=== PATIENT | female | born 1985 | race Caucasian/White ===

== ENCOUNTER 2025-04-16 08:45 | Outpatient (CLI) | payer BC, SELFPAY ==
--- NOTE | ~2025-04-16 | MMUS_ITS ---
EXAMINATION: US breast BI complete, MM diagnostic ching BI w phillip HISTORY: Palpable breast masses during clinical examination. TECHNIQUE: Additional 3-D tomosynthesis images of the breasts were performed and synthetic 2-D images were generated. CAD analysis was submitted and interpreted. High resolution bilateral complete breas t ultrasound was performed. COMPARISON: None BREAST PARENCHYMAL COMPOSITION: Dense: The breasts are extremely dense, which lowers the sensitivity of mammography. FINDINGS: MAMMOGRAPHIC FINDINGS: There are no suspicious masses, calcifications or architectural distortion in either breast to sugges t malignancy. ULTRASOUND: Complete US of all 4 quadrants of the breast/s and retroareolar region was reviewed. Right breast: Normal heterogeneous echotexture without focal solid or cystic mass. Left breast: At 12:00, 4 cm from the nipple there is an oval circumscribed parallel oriented hypoecho ic mass measuring 5 x 5 x 3 mm with marginal vascularity, no posterior features and smooth margins. IMPRESSION: 1. Probable benign 5 mm left breast mass at 12:00, 4 cm from the nipple. No evidence for malignancy i n the right breast. 2. Recommend 6 month follow-up Limited left breast ultrasound. BI-RADS category 3, probably benign findings. Reviewed, dictated and finalized at location A. IMPRESSION: 1. Probable benign 5 mm left breast mass at 12:00, 4 cm from the nipple. No saida dence for malignancy in the right breast. 2. Recommend 6 month follow-up Limited left breast ultrasound. BI-RADS category 3, probably benign findings.
== END 2025-04-16 08:46 | disposition home or self-care (01) ==
PROVIDERS: PCP Physician Assistant; Visit Provider Physician Assistant
DX: N63.10 Unspecified lump in the right breast, unspecified quadrant (principal); N63.20 Unspecified lump in the left breast, unspecified quadrant
CPT/HCPCS: 76641; 77062; 77066; G0279

== ENCOUNTER 2025-07-09 02:42 | Day surgery (SDC) | payer BC, SELFPAY ==
--- NOTE | 2025-06-28 16:55 | PC.NURSE ---
Report to the Outpatient Waiting Room, entrance under the green pavilion located off [facility], at time 1000 on date 07/09/25. Planned Procedure Time: 1200.? Time changes happen often and if your time is changed the preop area will call you the afternoon before. - You and your visitor will be asked to self-screen and do not enter if you have any COVID symptoms. Please call surgeon if you need to reschedule. - A mask is optional within the hospital at this time. Patients may have clear liquids (water, carbonated beverages, clear teas, apple juice) until 3 hours prior to surgery with a maximum of 20 ounces. 0900 - No food from midnight until time of surgery and no smoking, or chewing tobacco (or any form of nicotine). No chewing gum, candy or mints. - Infants may have breast milk until 4 hours before surgery, infant formula 6 hours prior to surgery. - Children will be allowed to drink immediately following surgery.? If applicable, please bring a bottle or sippy cup to assist with drinking. Juice, water, soda, and popsicles are readily available.? For infants on formula, please bring formula the day of surgery.? Pacifiers are allowed. Take only the following medications with a SIP of water on the morning of surgery: N/A DO NOT STOP ANY OF YOUR OTHER PRESCRIPTION MEDICATIONS PRIOR TO SURGERY EXCEPT THE FOLLOWING Hold all vitamins and supplements for 3 days per anesthesiologist. Medications to discontinue per physician N/A Date to take last dose N/A Please no make-up, nail divehi, hairspray, perfume, deodorant, or body powder the day of surgery.? No jewelry (including any body piercings) or valuables the day of surgery, leave them at home.? Please take a shower or bath the night before, or the morning of, surgery with an antibacterial soap.? Wear comfortable, loose fitting clothing.? Children are encouraged to wear pajamas. - Jewelry must be removed prior to entering the operating room.? Rings and piercings that are not removed may be cut off. - The hospital will not accept responsibility for valuables.? - Please leave all valuables, including medications, at home the day of surgery. If you are going home after surgery, a licensed pharmacy delivery driver must drive you home.? - NO public transportation without another adult if you receive anesthesia. - We recommend that an adult stay with you for 24 hours following discharge. - We also recommend that you do not drive, make important decision, drink alcoholic beverages, or take any drugs that were not prescribed by your health care provider for at least 24 hours after your discharge time. For Pediatric surgeries, we recommend two adults accompany the child home. Follow any additional instructions given to you from your surgeon. Telephone instructions given to Patient- Emely Chacon and asked if any additional questions and then verbalized understanding. Patient advised to call surgeon office or pre surgery nurse liaison [phone] if any additional questions.
[2025-06-28 17:01] VITALS: BMI 24.5
--- OUTSIDE RECORDS SUMMARY | 2025-07-09 02:43 | XMS_ITS | Clinical Summary ---
Author Organization [facility] at the Medical Office Building Address [address] [place] [id number] Care Team Providers Care Pole Shaver Name Role Phone Shelly Olivas Primary Care Provider [phone] Guido Hernandez MD Unavailable [phone] Allergies Active Allergy Reactions Criticality Noted Date Comments Amoxicillin Penicillins Hives Medium 11/02/2017 Medications albuterol HFA (ProAir HFA) 90 mcg/actuation inhalerIndicati ons:COVID-19 Inhale 2 puffs every 4 (four) hours as needed for wheezing or shortness of breath 8.5 g 2 Active triamcinolone (KENALOG) 0.1 % ointmentIndicat ions:Dermatitis due to plant Apply topically 2 (two) times a day as needed for irritation or rash Do use more than 10-14 days 60 g 5 Active methylPREDNISol one (MEDROL DOSEPACK) 4 mg DosepackIndicat ions:Dermatitis due to plant Take as directed on package. 21 tablet 5 06/11/20 25 Active Problems Problem Noted Date Diagnosed Date Hair loss 02/05/2025 Assessment & Plan (02/05/2025 8:21 AM CDT): Orders: Ferritin; Future Iron profile w/ IBC; Future Total testosterone; Future Comprehensive metabolic panel; Future CBC without differential; Future Well woman exam with routine gynecological exam 09/17/2021 Assessment & Plan (04/10/2025 10:58 AM CDT): Exercise 5 days a week, 30 mins per day recommended. Eat a heart healthy diet consisting of good, healthy protein (eggs, nuts, peanut butter, chicken, fish, turkey, less pork/beef), lots of vegetables, less carbohydrates and less sugar. Annual physical recommended. Assessment & Plan (09/17/2021 4:04 PM WASTEWATER PROJECT ENGINEER): Exercise 5 days a week, 30 mins per day recommended. Eat a heart healthy diet consisting of good, healthy protein (eggs, nuts, peanut butter, chicken, fish, turkey, less pork/beef), lots of vegetables, less carbohydrates and less sugar. Annual physical recommended. Vaccinations up-to-date, she is going to get her COVID booster She declines a flu vaccine Pap-today 09/17/2021 H pylori ulcer 03/19/2021 Chronic gastritis 03/19/2021 Steatosis of liver 11/12/2020 Iron deficiency anemia 04/26/2020 Assessment & Plan (02/05/2025 8:21 AM CDT): Orders: Ferritin; Future Iron profile w/ IBC; Future US Transvaginal; Future CBC without differential; Future Menorrhagia with regular cycle 01/04/2019 Assessment & Plan (02/05/2025 8:21 AM CDT): Orders: Thyroid Function [place]; Future US Transvaginal; Future Ambulatory referral to Obstetrics / Gynecology; Future Irritable bowel syndrome with constipation 02/02 Assessment & Plan (02/05/2025 8:22 AM CDT): Hypoglycemia 04/07/2017 Resolved Problems Problem Noted Date Diagnosed Date Resolved Date Psychophysiological insomnia 09/17/2021 02/05/2025 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 09/17/2021 02/05/2025 Iron deficiency anemia secon lisy to inadequate dietary iron intake 01/04/2019 0 Microcytic anemia 09/07/2018 11/12/2020 Assessment & Plan (04/16/2020 9:59 AM CDT): Will recheck labs Encounters Date Type Department Care Team Description 06/05/2025 1:00 PM CDT Telemedicine [address] [phone] Melody Chavarria NP Dermatitis due to plant (Primary Dx) 06/05/2025 Patient Self-Triage [facility]/ Physicians [address] [place] [address] Mychart, Generic Provider 04/17/2025 Orders Only [address] [phone] Shelly Olivas PA Mass of left breast, unspecified quadrant (Primary Dx) 04/16/[address] [address] Shelly Olivas PA 04/16/2025 Orders Only [address] [phone] Shelly Olivas PA Masses of both breasts 04/16/2025 Results Follow-Up [address] [phone] Sehlly Olivas PA THINPREP TIS PAP AND HR HPV DNA, C. TRACHOMATIS AND N. GONORRHOEAE 04/10/2025 9:30 AM CDT Office Visit [address] [phone] Shelly Olivas PA Well woman exam with routine gynecological exam (Primary Dx); Encounter for screening for human papillomavirus (HPV); Screen for STD (sexually transmitted disease); Vaginal itching; Vaginal discharge; Vaginal odor; Pap smear for cervical cancer screening; Masses of both breasts from Last 3 Months Immunizations Immunization Administration Dates Next Due Influenza, Unspecified 08/01/2024(Deferr ed: Patient decision),08/01/2023(Deferred: Patient decision),08/01/2022(Deferred: Patient Refused),03/11/2022(Deferred: Patient Refused),08/01/2021(Deferred: Patient Refused),08/01/2021(Deferred: Patient Refused),08/01/2020(Deferred: Patient Refused) Tdap 06/03/2019 Surgical History Surgery Date Site/Laterality Comments TUBAL LIGATION March 2014 Medical History Medical History Date Comments Hypoglycemia 04/07/2017 Irritable bowel syndrome with constipation 02/02 Iron deficiency anemia secon lisy to inadequate dietary iron intake 01/04/2019 Menorrhagia with regular cycle 01/04/2019 Microcytic anemia 09/07/2018 Liver disease Anxiety November 2020 Peptic ulceration January 2021 Menstrual problem June 2020 Psychophysiological insomnia 09/17/2021 Family History Medical History Relation Name Comments Diabetes Father Rg Chacon Heart attack Father Rg Chacon Heart attack Maternal Grandfather Josh Pelaez Heart attack Maternal Grandmother Philly Benigno Heart disease Maternal Grandmother Philly Johnsonlanahan Obesity Mother Frida Cramer Thyroid problem Mother Frida Cramer Coronary artery disease Paternal Grandfather Kurt Clau s Heart disease Paternal Grandfather Kurt Chacon Kidney failure Paternal Grandfather Kurt Chacon Aneurysm Paternal Grandmother Breast cancer Paternal Grandmother Relation Name Status Comments Father Rg Chacon Alive Maternal Grandfather Josh Pelaez Maternal Grandmother Philly Pelaez Mother Frida Cramer Alive Paternal Grandfather Kurt Chacon Paternal Grandmother Social History Tobacco Use Types Packs/Day Years Used Date Smoking Tobacco: Former Cigarettes 0.1 26.2 S tarted: 04/16/1999 Smokeless Tobacco: Never Tobacco Cessation:Counseling Given: Not Answered Alcohol Use Standard Drinks/Week Comments Yes 4 (1 standard drink = 0.6 oz pur e alcohol) AUDIT-C Answer Date Recorded Q1: How often do you have a drink containing alc ohol? Monthly or less 06/05/2025 Q2: How many drinks containi ng alcohol do you have on a typical day when you are drinking? 1 or 2 06/05/2025 Q3: How often do you have si x or more drinks on one occasion? Never 06/05/2025 PHQ-2 Answer Date Recorded PHQ-2 Total Score (If total score is 3 or more points, staff should administer the PHQ-9) 0 06/05/2025 PHQ-9 Answer Date Recorded PHQ-9 Total Score 1 04/10/2025 Comments No Sex and Gender Information Value Date Recorded Sex Assigned at Not on file Legal Sex Female 5:38 PM WASTEWATER PROJECT ENGINEER Gender Identity Female 04/23/2020 12:25 PM CDT Sexual Orientation Straight 04/23/2020 12 :25 PM CDT Obstetrics History Last Filed Vital Signs Vital Sign Reading Time Taken Comments Blood Pressure 102/68 04/10/2025 9:27 AM CDT Pulse 87 04/10/2025 9:27 AM CDT Temperature 36.8 C (98.2 F) 04/10/2025 9:27 AM CDT Respiratory Rate 16 04/10/2025 9:27 AM CDT Oxygen Saturation 98% 04/10/2025 9:27 AM CDT Inhaled Oxygen Concentration - - Weight 62.1 kg (137 lb) 06/05/2025 12:54 PM CDT Height 160 cm (5' 3) 06/05/2025 12:54 PM CDT Body Mass Index 24.27 06/05/2025 12:54 PM CDT Plan of Treatment Health Maintenance Due Date Last Done Comments Hepatitis C Screening 1987 Hepatitis B Screening 2005 Pneumococcal vaccine <65 (1 of 2 - PCV) 2006 HPV Vaccines (1 - 3-dose SCD M series) 2014 Covid-19 Vaccine (2024-2 6 season) 2025 12/10/2021, 03/30/2021, 03/02/2021 Influenza Vaccine (#1) 2025 Regular Well Visit/Exam 18-64 04/10/2026 04/10/2025, 09/17/2021 Depression Screening 06/05/2026 06/05/2025, 04/10/2025, 04/10/2025, Additional history exists Cervical Cancer Screening 09/17/2026 09/17/2021 DTaP/Tdap/Td Vaccine (2 - Td or Tdap) 06/03/2029 06/03/2019 Varicella Vaccines Discontinued Procedures Procedure Name Priority Date/Time Associated Diagnosis Comments THINPREP TIS PAP AND HR HPV DNA, C. TRACHOMATIS AND N. GONORRHOEAE Routine 04/10/2025 10:47 AM CDT Pap smear for cervical cancer screening Encounter for screening for human papillomavirus (HPV) Screen for STD (sexually transmitted disease) PAP AND HIGH RISK HPV, REFLEX TO GENOTYPING Routine 09/17/2021 3:55 PM WASTEWATER PROJECT ENGINEER Menorrhagia with irregular cycle Well woman exam with routine gynecological exam from Last 3 Months or Most Recently Relevant to Health Maintenance Results * (ABNORMAL) THINPREP TIS PAP AND HR HPV DNA, C. TRACHOMATIS AND N. GONORRHOEAE (04/10/2025 10:47 AM CDT) CLINICAL INFORMATION: [facility] Comment:None given LMP [facility] [email or web address] [facility] Comment:NONE GIVEN Previous Pap [facility] [email or web address] [facility] Comment:NONE GIVEN Prev. Bx [facility] [email or web address] [facility] Comment:NONE GIVEN SOURCE: [facility] [email or web address] [facility] Comment:None given Pap, specimen adequacy [facility] Comment: Satisfactory for evaluation. Endocervical/transformation zone component present. Age and/or menstrual status not provided Pap, general categorization (A) [facility] [email or web address] [facility] Comment:Cytology Results: Ep ithelial Cell Abnormality HPV interp (A) [facility] Comment: Atypical Squamous Cells of Undetermined Significance (ASC-US) COMMENTS [facility] Comment: This Pap test has been evaluated with computer assisted technology. [employer] [facility] Comment: FAN GARNER(ASCP) CT Screening location: [address] [address] Pathologist [facility] Comment: Alexey Noyola M.D., Board Certified in Anatomic Pathology and Clinical Pathology. (electronic signature) Pathologist Release Date/Time: 04/13/2025 09:27AM Comment [facility] Comment: EXPLANATORY NOTE: The Pap is a screening test for cervical cancer. It is not a diagnostic test and is subject to false negative and false positive results. It is most reliable when a satisfactory sample, regularly obtained, is submitted with relevant clinical findings and history, and when the Pap result is evaluated along with historic and current clinical information. Human papillomavirus DNA, High Risk E6/E7 Detected(A) NOT DETECTED [facility] Comment: Detected One or more High Risk HPV types (16,18,31,33, 35,39,45,51,52,56,58,59,66,68) was detected. Methodology: Real Time PCR C. trachomatis RNA NOT DETECTED NOT DETECTED [facility] N. gonorrhoeae RNA NOT DETECTED NOT DETECTED [facility] Comment [facility] Comment: The analytical performance characteristics of this assay, when used to test SurePath(TM) specimens have been determined by [employer]. The modifications have not been cleared or approved by the FDA. This assay has been validated pursuant to the CLIA regulations and is used for clinical purposes. For additional information, please refer to https://education.BDA/faq/UKO839 (This link is being provided for information/ educational purposes only.) Vaginal Swab 04/10/2025 10:4 7 AM CDT 04/11/2025 8:00 PM CDT us Shelly [facility] CYTOLOGY ORDERABLES Final Re sult [facility] [address] [place] [address] * Pap and High Risk HPV, reflex to Genotyping (09/17/2021 3:55 PM WASTEWATER PROJECT ENGINEER) CLINICAL INFORMATION: [facility] Comment: Information not provided SCREENING LMP [facility] Comment:09/17 Previous Pap [facility] Comment:INFORMATION NOT PROV IDED Prev. Bx [facility] Comment:INFORMATION NOT PROV IDED SOURCE: [facility] Comment:Cervix, Endocervix Pap, specimen adequacy [facility] Comment: Satisfactory for evaluation. Endocervical/transformation zone component present. HPV interp [facility] Comment:Negative for intraep ithelial lesion or malignancy. Grip Wrapper [facility] Comment: DDS, CT(ASCP) CT screening location: [place] [address] [place] [address] Comment [facility] [email or web address] [facility] Comment: EXPLANATORY NOTE: The Pap is a screening test for cervical cancer. It is not a diagnostic test and is subject to false negative and false positive results. It is most reliable when a satisfactory sample, regularly obtained, is submitted with relevant clinical findings and history, and when the Pap result is evaluated along with historic and current clinical information. Human papillomavirus DNA, High Risk E6/E7 Not Detected NOT DETECTED [employer] /Sara Storey [facility] Comment: Not Detected High Risk HPV types (16,18,31,33,35,39,45,51,52, 56,58,59,66,68) were not detected. Other HPV types which cause anogenital lesions may be present. The significance of the other types of HPV in malignant processes has not been established. Methodology: Real Time PCR Swab 09/17/2021 3:55 PM WASTEWATER PROJECT ENGINEER 09/18/2021 1:49 PM WASTEWATER PROJECT ENGINEER Shelly LUNA [facility] CYTOLOGY ORDERABLES Final Re sult [email or web address] [address] [place] [address] [employer] [address] [place] [address] from Last 3 Months or Most Recently Relevant to Health Maintenance Insurance [employer] PPO POS [employer] PPO POS [facility] [place] Care Teams Pole Shaver Relationship Specialty Start Date End Date Shelly Olivas PA [address] [place] [address] PCP - General 01/04/19 Guido Hernandez MD [address] [place] [address] Medical Oncologist/Payroll Accountant Hematology and Oncology 05/08/20
--- NOTE | 2025-07-09 07:43 | PM.IMHP ---
H&P: HPI History of Present Illness Date/Time: 07/09/25 07:43 Chief Complaint: menorrhagia Narrative: Patient is a 40 year old female who presents for hysteroscopy and endometrial ablation. She reports a long history of menorrhagia which started after her tubal ligation. She previously required iron infusions for symptomatic anemia. She has tried medical management in the past without improvement. Endometrial biopsy showed no hyperplasia or malignancy. Risks and benefits of endometrial ablation including risk of pain and continued heavy bleeding were discussed and patient voices understanding. Review of Systems Review of Systems: All systems reviewed & are unremarkable except as noted in HPI and below [facility] Social History Social History Years smoked: 22 Smoking status: Current every day smoker Tobacco type: cigarettes Alcohol intake: current Alcohol use details: once a month Spiritual care concerns: No Meds Home Medications and Allergies Home Medications ?Medication ?Instructions ?Recorded ?Confirmed ?Type No Home Medications 06/28/25 06/28/25 History Allergies Allergy/AdvReac Type Severity Reaction Status Date / Time amoxicillin Allergy Severe Hives Verified 06/28/25 16:44 Penicillins Allergy Severe Hives Verified 06/28/25 16:44 Exam Const: General: comfortable and no acute distress Eyes: General: appearance normal, both eyes and all related structures Resp: Effort & Inspection: normal respiratory effort Cardio: Rate: regular rate Extrem: General: normal to inspection Psych: Mental Status: mental status grossly normal Assessment and Plan Assessment and plan (1) Menorrhagia: Code(s): N92.0 - Excessive and frequent menstruation with regular cycle Status: Acute Assessment and Plan: - reports menorrhagia started after tubal ligation - EMB wnl, no hyperplasia or malignancy - risks and benefits of endometrial ablation discussed with patient who voices understanding - will proceed with hysteroscopy and endometrial ablation
[2025-07-09 08:40] VITALS: BP 112/54; PULSE 88; RESP 16; TEMP 36.7; O2SAT 100
--- NOTE | 2025-07-09 08:51 | WPDHPUPDATE1 ---
History and Physical Update Update Date/Time: 07/09/25 08:51 History and Physical has been reviewed, including an updated exam of the patient. There are NO changes in the patient's condition. Risks, benefits, and alternatives have been discussed and questions answered. Patient agrees to proceed with procedure.
[2025-07-09] MEDS: ACETAMINOPHEN 500 MG TABLET 1000 MG PO (08:59)
--- NOTE | 2025-07-09 09:00 | P.PNAN_ITS ---
Anes - Initial Pre Proc Eval Procedure: Operation Date: 07/09/25 10:30 Proposed Procedures p Hysteroscopy with Kiana Endometrial Ablation - Kameron Gonzales MD Date/Time: 07/09/25 09:00 Surgeon: Kameron Gonzales MD Pre Op Diagnosis: menorrhagia with regular cycle Patient Data Age: 40 Gender: F Height: 1.6 m Weight: 62.7 kg Allergies Allergy/AdvReac Type Severity Reaction Status Date / Time amoxicillin Allergy Severe Hives Verified 06/28/25 16:44 Penicillins Allergy Severe Hives Verified 06/28/25 16:44 Home Medications ?Medication ?Instructions ?Recorded ?Confirmed ?Type No Home Medications 06/28/25 06/28/25 H istory Patient hx anesthesia problems: none Family hx anesthesia problems: none Results Review: All pre-operative results and documents have been reviewed as part of the pre- operative evaluation. [facility] Social History Social History Years smoked: 22 Smoking status: Current every day smoker Tobacco type: cigarettes Alcohol intake: current Alcohol use details: once a month Spiritual care concerns: No Anes - Eval Final PreProcedure Day of Procedure 07/09/25 09:00 Patient weight: normal Heart: regular rate and rhythm Lungs: clear to auscultation and normal air movement Airway: Mallampati scale class II Neurological: alert and oriented Last oral intake: >/= 8 hours ASA classification: II Emergent: no Anesthetic plan: proceed Anesthesia type and monitoring: general GIVS and standard monitoring Results Review: All pre-operative results and documents have been reviewed as part of the pre- operative evaluation. Informed Consent: The patient's anesthetic plan and its attendant risks and benefits were discussed with the patient/family/POA. Questions were solicited and answers provided to the satisfaction of the patient/family/POA.
[2025-07-09] MEDS: LACTATED RINGERS 1,000 ML 30 ML IV CONT (09:02)
[2025-07-09 09:14] LABS: BEDSIDEPREGUCG Negative (Negative)
[2025-07-09] MEDS: LIDO 1%/EPINEPHRINE 1:100,000 50 ML VIAL 10 ML INFILTRATE (10:24)
[2025-07-09] MEDS: KETOROLAC 30 MG/ML VIAL (*BKC) IV PUSH (10:51)
--- NOTE | 2025-07-09 10:55 | P.OP_ITS ---
Procedure Note - Detailed Date of Procedure 07/09/25 Pre-op Diagnosis menorrhagia with regular cycle Post-op Diagnosis Same Procedure Performed hysteroscopy Surgeon Kameron Gonzales MD Anesthesia MAC Indications menorrhagia Findings thick and fluffy endometrium visualized on entry into possible cavity; unable to visualize tubal ostia due to poor inflation pressure and endometrium; normal appearing cervix, however dilated due to menses Description of Procedure The patient was then taken to the operating room with IVFs running. She was placed in the dorsal supine position where she received MAC without any difficu lty.?? The patient was placed in the dorsal lithotomy position using vance stirrups. EUA revealed the above findings. She was then prepped and draped in a normal sterile fashion. A time-out procedure was performed and all members of the OR team agreed on the patient and plan. A bivalved speculum was then inserted into the patient's vagina.? The anterior lip of the cervix was grasped with a single tooth tenaculum. The uterus was sounded to 8 cm.? At this point, the hysteroscope was then inserted into the uterine cavity. Saline was used as the distension medium. The above findings were noted. The procedure was terminated as the endometrial cavity could not be confidently identified due to shaggy tissue and nonvisualized tubal ostia. The hysteroscope was then removed.? The tenaculum was removed; the anterior lip of the cervix was hemostatic.? The speculum was then removed. The patient tolerated the procedure well.? Sponge, lap, needle, and instrument counts were correct X2.? The patient was taken out of the dorsal lithotomy position and awakened from anesthesia and taken to the recovery room in stable condition. Estimated Blood Loss 5 Pathology None sent Condition Stable Disposition Same day
[2025-07-09 10:59] VITALS: BP 107/49; PULSE 84; RESP 16; O2SAT 98
[2025-07-09 11:10] VITALS: BP 108/54; PULSE 70; RESP 16; O2SAT 98
[2025-07-09] MEDS: oxyCODONE HCL (*CRX) 5 MG TAB IR PO (12:14)
[2025-07-09 12:19] VITALS: BP 114/57; PULSE 75; RESP 16
== END 2025-07-09 12:45 | disposition home or self-care (01) ==
PROVIDERS: PCP Physician Assistant; Visit Provider Obstetrics & Gynecology
PROC: 0U5B8ZZ Destruction of Endometrium, Via Natural or Artificial Opening Endoscopic (ICD-10-PCS; CPT 58563; principal; 2025-07-09 10:30)
DX: N92.0 Excessive and frequent menstruation with regular cycle (principal); Z53.8 Procedure and treatment not carried out for other reasons; F17.210 Nicotine dependence, cigarettes, uncomplicated
CPT/HCPCS: 58563; A9270; J1885; J2003; J2004; J2250; J2704; J3010; J7120

== ENCOUNTER 2025-07-24 00:36 | Day surgery (SDC) | payer BC, SELFPAY ==
[2025-07-13 08:38] VITALS: BMI 24.2
--- NOTE | 2025-07-13 08:44 | PC.NURSE ---
Report to the Outpatient Waiting Room, entrance under the green pavilion located off [facility], at time 0700_ on date _07/24/25_. Planned Procedure Time: 0900.? Time changes happen often and if your time is changed the preop area will call you the afternoon before. - You and your visitor will be asked to self-screen and do not enter if you have any COVID symptoms. Please call surgeon if you need to reschedule. - A mask is optional within the hospital at this time. Patients may have clear liquids (water, carbonated beverages, clear teas, apple juice) until 3 hours prior to surgery with a maximum of 20 ounces. - No food from midnight until time of surgery and no smoking, or chewing tobacco (or any form of nicotine). No chewing gum, candy or mints. - Infants may have breast milk until 4 hours before surgery, infant formula 6 hours prior to surgery. - Children will be allowed to drink immediately following surgery.? If applicable, please bring a bottle or sippy cup to assist with drinking. Juice, water, soda, and popsicles are readily available.? For infants on formula, please bring formula the day of surgery.? Pacifiers are allowed. Take only the following medications with a SIP of water on the morning of surgery: NONE DO NOT STOP ANY OF YOUR OTHER PRESCRIPTION MEDICATIONS PRIOR TO SURGERY EXCEPT THE FOLLOWING Hold all vitamins and supplements for 3 days per anesthesiologist. Medications to discontinue per physician Date to take last dose Please no make-up, nail portuguese, hairspray, perfume, deodorant, or body powder the day of surgery.? No jewelry (including any body piercings) or valuables the day of surgery, leave them at home.? Please take a shower or bath the night before, or the morning of, surgery with an antibacterial soap.? Wear comfortable, loose fitting clothing.? Children are encouraged to wear pajamas. - Jewelry must be removed prior to entering the operating room.? Rings and piercings that are not removed may be cut off. - The hospital will not accept responsibility for valuables.? - Please leave all valuables, including medications, at home the day of surgery. If you are going home after surgery, a licensed inventory associate and driver must drive you home.? - NO public transportation without another adult if you receive anesthesia. - We recommend that an adult stay with you for 24 hours following discharge. - We also recommend that you do not drive, make important decision, drink alcoholic beverages, or take any drugs that were not prescribed by your health care provider for at least 24 hours after your discharge time. For Pediatric surgeries, we recommend two adults accompany the child home. Follow any additional instructions given to you from your surgeon. Telephone instructions given to __PATIENT_and asked if any additional questions and then verbalized understanding. Patient advised to call surgeon office or pre surgery nurse liaison [phone] if any additional questions.
--- OUTSIDE RECORDS SUMMARY | 2025-07-24 00:38 | XMS_ITS | Clinical Summary ---
Author Organization [facility] at the Medical Office Building Address [address] [place] [id number] Care Team Providers Care Infrastructure Consultant Name Role Phone Shelly Olivas Primary Care Provider [phone] Guido Hernandez MD Unavailable [phone] Allergies Active Allergy Reactions Criticality Noted [...] than 10-14 days 60 g 5 Active Active Problems Problem Noted Date Diagnosed Date [...] recommended. 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): Exercise 5 days a week, 30 mins [...] (02/05/2025 8:21 AM CDT): Orders: Thyroid Function Charles Mix; Future US Transvaginal; Future Ambulatory referral to [...] Team Description 06/05/2025 1:00 PM CDT Telemedicine [facility] [address] [phone] Melody Chavarria NP Dermatitis due to plant (Primary Dx) 06/05/2025 Patient Self-Triage [facility] HealthCare/ Physicians [address] [place] [id number] Mychart, Generic Provider from Last 3 Months Immunizations Immunization Administration [...] Grandfather Josh Pelaez Heart attack Maternal Grandmother Phillycamilo Pelaez Heart disease Maternal Grandmother Philly Pelaez Obesity Mother Frida Villagranbs Thyroid problem Mother Frida Ricoubbs Coronary artery disease Paternal Grandfather Kurt Clau [...] Used Date Smoking Tobacco: Former Cigarettes 0.1 26.3 S tarted: 04/16/1999 Smokeless Tobacco: Never Tobacco [...] on file 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 Gender Identity Female 04/23/2020 12:25 PM CDT [...] Procedure Name Priority Date/Time Associated Diagnosis Comments PAP AND HIGH RISK HPV, REFLEX TO GENOTYPING Routine 09/17/2021 3:55 PM FELT HAT STEAMER Menorrhagia with irregular cycle Well woman exam with routine gynecological exam from Last 3 Months or Most Recently Relevant to Health Maintenance Results * Pap and High Risk HPV, reflex to Genotyping (09/17/2021 3:55 PM FELT HAT STEAMER) CLINICAL INFORMATION: [facility] Comment: Information not provided SCREENING LMP [facility] Comment:09/17 Previous Pap [facility] Comment:INFORMATION NOT PROV IDED Prev. Bx [facility] Comment:INFORMATION NOT PROV IDED SOURCE: [facility] Comment:Cervix, Endocervix Pap, specimen adequacy [facility] Comment: Satisfactory for evaluation. Endocervical/transformation zone component present. HPV interp [facility] Comment:Negative for intraep ithelial lesion or malignancy. Digital Data Analyst [facility] Comment: DDS, CT(ASCP) CT screening location: [place] [address] [place] [address] Comment [facility] Comment: EXPLANATORY NOTE: The Pap is a [...] High Risk E6/E7 Not Detected NOT DETECTED [facility] Comment: Not Detected High Risk HPV types (16,18,31,33,35,39,45,51,52, 56,58,59,66,68) were not detected. Other HPV types which cause anogenital lesions may be present. The significance of the other types of HPV in malignant processes has not been established. Methodology: Real Time PCR Swab 09/17/2021 3:55 PM FELT HAT STEAMER 09/18/2021 1:49 PM FELT HAT STEAMER Shelly [facility]TOLOG[facility] ORDERABLES Final Re sult [facility] [address] [place] [address] [facility] [address] [facility] [place] [address] from Last 3 Months or Most Recently Relevant to Health Maintenance Insurance [employer] PPO POS [facility] Care Teams Infrastructure Consultant Relationship Specialty Start Date End Date Shelly Olivas PA [address] [place] [address] PCP - General 01/04/19 Guido Hernandez MD [address] [place] [address] Medical Oncologist/Weed Controller Hematology and Oncology 05/08/20
[2025-07-24] MEDS: ACETAMINOPHEN 500 MG TABLET 1000 MG PO (07:30)
[2025-07-24] MEDS: LACTATED RINGERS 1,000 ML 30 ML IV CONT (07:30)
[2025-07-24 08:38] VITALS: BP 111/65; PULSE 68; TEMP 37.1; O2SAT 100; BMI 25.6
--- NOTE | 2025-07-24 08:38 | PM.IMHP ---
H&P: HPI History of Present Illness Date/Time: 07/24/25 08:38 Chief Complaint: menorrhagia Narrative: Patient is a 40 year old female who presents for hysteroscopy and endometrial ablation. She reports a long history of menorrhagia which started after her tubal ligation. She previously required iron infusions for symptomatic anemia. She has tried medical management in the past without improvement. Endometrial biopsy showed no hyperplasia or malignancy. Risks and benefits of endometrial ablation including risk of pain and continued heavy bleeding were discussed and patient voices understanding. Review of Systems Review of Systems: All systems reviewed & are unremarkable except as noted in HPI and below [facility] Social History Social History Smoking packs per day: 0.25 Smoking cigarettes per day: 5.0 Years smoked: 20 Smoking pack-years: 5.00 Smoking status: Former smoker Tobacco type: cigarettes Additional smoking assessment comments: OCT 2023 QUIT Alcohol intake: current Alcohol use details: 1 PER MONTH Substance use: never Living arrangements: with family Spiritual care concerns: No Meds Home Medications and Allergies Home Medications ?Medication ?Instructions ?Recorded ?Confirmed ?Type No Home Medications 06/28/25 07/13/25 History Allergies Allergy/AdvReac Type Severity Reaction Status Date / Time amoxicillin Allergy Severe Hives Verified 07/24/25 08:21 Penicillins Allergy Severe Hives Verified 07/24/25 08:21 Exam Const: General: comfortable and no acute distress Eyes: General: appearance normal, both eyes and all related structures Resp: Effort & Inspection: normal respiratory effort Cardio: Rate: regular rate Extrem: General: normal to inspection Psych: Mental Status: mental status grossly normal Assessment and Plan Assessment and plan (1) Menorrhagia: Code(s): N92.0 - Excessive and frequent menstruation with regular cycle Status: Acute Assessment and Plan: - reports menorrhagia started after tubal ligation - EMB wnl, no hyperplasia or malignancy - previously attempted however patient was on menses and visualization inside uterine cavity was poor - risks and benefits of endometrial ablation discussed with patient who voices understanding - will proceed with hysteroscopy and endometrial ablation
--- NOTE | 2025-07-24 08:39 | WPDHPUPDATE1 ---
History and Physical Update Update Date/Time: 07/24/25 08:39 History and Physical has been reviewed, including an updated exam of the patient. There are NO changes in the patient's condition. Risks, benefits, and alternatives have been discussed and questions answered. Patient agrees to proceed with procedure.
--- NOTE | 2025-07-24 08:58 | P.PNAN_ITS ---
Anes - Initial Pre Proc Eval Procedure: Operation Date: 07/24/25 09:00 Proposed Procedures p Hysteroscopy Kiana Endometrial Ablation - Kameron Gonzales MD Date/Time: 07/24/25 08:58 Surgeon: Kameron Gonzales MD Pre Op Diagnosis: menorrhagia with regular cycle Patient Data Age: 40 Gender: F Height: 1.6 m Weight: 65.6 kg Last Vital Signs Temp 98.8 F 07/24/25 08:38 Pulse 68 07/24/25 08:38 BP 111/65 07/24/25 08:38 Pulse Ox 100 07/24/25 08:38 O2 Del Method Room Air 07/24/25 08:38 Allergies Allergy/AdvReac Type Severity Reaction Status Date / Time amoxicillin Allergy Severe Hives Verified 07/24/25 08:21 Penicillins Allergy Severe Hives Verified 07/24/25 08:21 Home Medications ?Medication ?Instructions ?Recorded ?Confirmed ?Type No Home Medications 06/28/25 07/13/25 H istory Patient hx anesthesia problems: none Family hx anesthesia problems: none Results Review: All pre-operative results and documents have been reviewed as part of the pre- operative evaluation. [facility] Social History Social History Smoking packs per day: 0.25 Smoking cigarettes per day: 5.0 Years smoked: 20 Smoking pack-years: 5.00 Smoking status: Former smoker Tobacco type: cigarettes Additional smoking assessment comments: OCT 2023 QUIT Alcohol intake: current Alcohol use details: 1 PER MONTH Substance use: never Living arrangements: with family Spiritual care concerns: No Anes - Eval Final PreProcedure Day of Procedure 07/24/25 08:58 Patient weight: normal Lungs: normal air movement Airway: Mallampati scale class II Neurological: alert and oriented Last oral intake: >/= 8 hours ASA classification: II Emergent: no Anesthetic plan: proceed Anesthesia type and monitoring: general GIVS and standard monitoring Results Review: All pre-operative results and documents have been reviewed as part of the pre-operative evaluation. Ex smoker, 5 pack years, quit 2022. Informed Consent: The patient's anesthetic plan and its attendant risks and benefits were discu ssed with the patient/family/POA. Questions were solicited and answers provided to the satisfaction of the patient/family/POA.
[2025-07-24] MEDS: LIDO 1%/EPINEPHRINE 1:100,000 20 ML VIAL 10 ML INFILTRATE (09:25)
[2025-07-24] MEDS: KETOROLAC 30 MG/ML VIAL (*BKC) IV PUSH (09:26)
--- NOTE | 2025-07-24 09:37 | P.OP_ITS ---
Procedure Note - Detailed Date of Procedure 07/24/25 Pre-op Diagnosis menorrhagia with regular cycle Post-op Diagnosis Same Procedure Performed hysteroscopy with endometrial ablation Surgeon Kameron Gonzales MD Anesthesia MAC Indications heavy menstrual bleeding Findings normal appearing endometrial cavity, both tubal ostia visualized Description of Procedure 9 With IV fluids infusing, the patient was taken to the operating room. The patient was placed in supine position and SCDs were placed on the lower extremities. General anesthesia with endotracheal intubation was given. A time- out took place. The patient was placed in dorsal lithotomy position using Santino stirrups and she was prepped and draped in the usual sterile fashion. A bivalved speculum was then inserted into the patient's vagina.?The uterus was sounded to 9 cm.? At this point, the? hysteroscope was then inserted into the uterine cavity. Saline was used as the distension medium. The above findings were noted. Both tubal ostia were visualized and pictures were taken.? The hysteroscope was then removed. The cervical length was then measured using the dilator and measured 5 cm.? The cervix was further dilated to accommodate the Kiana device. The Kiana device was then opened and the uterine cavity length set at 4 cm.? The device was deployed, the mesh examined, and then reinserted into the sheath.? The device was then inserted into the uterine cavity, deployed, and cavity width measurement was appropriate.? The cavity assessment was performed and was within normal limits.? The device was then activated.? Once the ablation was completed the device was removed and the hysteroscope reinserted.? The burn was noted to be equal and adequate.? The hysteroscope and tenaculum were removed.? The anterior lip of the cervix was hemostatic, and the bivalved speculum was then removed.? The patient tolerated the procedure well.? Sponge, lap, needle, and instrument counts were correct X3.? The patient was taken out of the dorsal lithotomy position and awakened from anesthesia and taken to the recovery room in stable condition. Estimated Blood Loss 10 Pathology None sent Complications No immediate complications Condition Stable Disposition Same day
[2025-07-24 09:38] VITALS: BP 100/51; PULSE 88; RESP 16; O2SAT 98
[2025-07-24 10:00] VITALS: BP 109/55; PULSE 73; RESP 16; O2SAT 100
[2025-07-24 10:25] VITALS: BP 108/61; PULSE 76; RESP 16
== END 2025-07-24 10:36 | disposition home or self-care (01) ==
PROVIDERS: PCP Physician Assistant; Visit Provider Obstetrics & Gynecology
PROC: 0U5B8ZZ Destruction of Endometrium, Via Natural or Artificial Opening Endoscopic (ICD-10-PCS; CPT 58563; principal; 2025-07-24 09:00)
DX: N92.0 Excessive and frequent menstruation with regular cycle (principal); Z98.51 Tubal ligation status; Z87.891 Personal history of nicotine dependence
CPT/HCPCS: 58563; A9270; J1885; J2003; J2004; J2250; J2405; J2704; J3010; J7120